=== PATIENT | female | born 1960 | race Caucasian/White ===

== ENCOUNTER 2019-07-17 14:55 | Emergency (ER) | payer BC ==
[~2019-07-17] VITALS: Ht 167.6 cm; Wt 98.4 kg
[~2019-07-17 14:55] MED LIST: Hair, Skin & N1 EACH PO; LEVSOD50; SERT25; TOPI15C; VITAMIN D-32000 UNIT
[2019-07-17 15:39] LABS: BASOPHILS ABSOLUTE AUTO 0.09 K/mm3 (0.00-0.23); BASOPHILS PERCENT AUTO 1 % (0-2); EOSINOPHILS ABSOLUTE AUTO 0.19 K/mm3 (0.00-0.68); EOSINOPHILS PERCENT AUTO 2 % (0-6); IMMATURE GRAN ABSOLUTE AUTO 0.03 K/mm3 (0.00-0.10); IMMATURE GRAN PERCENT AUTO 0 % (0-1); LYMPHOCYTES ABSOLUTE AUTO 1.34 K/mm3 (0.84-5.20); LYMPHOCYTES PERCENT AUTO 15 % (21-46); MONOCYTES ABSOLUTE AUTO 0.68 K/mm3 (0.16-1.47); MONOCYTES PERCENT AUTO 8 % (4-13); Mean Corpuscular HGB 32.1 pg (26.0-34.0); Mean Corpuscular HGB Conc 33.3 g/dL (31.5-36.5); Mean Corpuscular Volume 96 fL (80-100); NEUTROPHILS ABSOLUTE AUTO 6.74 K/mm3 (1.96-9.15); NEUTROPHILS PERCENT AUTO 74 % (41-73); Platelet Count 251 K/mm3 (150-400); RDW Coefficient Variation 12.3 % (11.7-14.2); RDW Standard Deviation 43.3 fL (35.1-46.3); Red Blood Cell Count 4.99 M/mm3 (3.80-5.20); White Blood Cell Count 9.07 K/mm3 (4.00-11.30)
[2019-07-17 16:00] LABS: Alanine Aminotransfer (ALT/SGP 31 U/L (12-78); Albumin, Blood 4.1 g/dL (3.4-5.0); Albumin/Globulin Ratio 1.1 (0.8-1.8); Alk Phos 81 U/L (50-136); Anion Gap 8 mmol/L (6-16); Aspartate Aminotrans (AST/SGOT 34 U/L (12-37); Bilirubin, Total 0.5 mg/dL (0.1-1.0); Blood Urea Nitrogen 8 mg/dL (8-24); Bun/Creatinine Ratio 9.5 (12.0-20.0); CO2, Blood 23 mmol/L (21-32); Calcium, Blood 8.8 mg/dL (8.5-10.1); Chloride, Blood 107 mmol/L (98-108); Creatinine, Blood 0.85 mg/dL (0.40-1.00); Globulin, Blood 3.6 g/dL (2.2-4.0); Glomerular Filtration Rate >60 (60-); Glucose, Blood 102 mg/dL (70-99); Potassium, Blood 4.1 mmol/L (3.5-5.5); Sodium, Blood 138 mmol/L (136-145); Total Protein, Blood 7.7 g/dL (6.4-8.2); Troponin I <0.015 ng/mL (0.000-0.040)
== END 2019-07-17 17:31 | disposition home or self-care (01) ==
LOC: ER 14:55
PROVIDERS: Physician Assistant
DX: I10 Essential (primary) hypertension (principal); R00.2 Palpitations; R56.9 Unspecified convulsions; Z87.891 Personal history of nicotine dependence; Z88.5 Allergy status to narcotic agent; Z88.6 Allergy status to analgesic agent; Z79.899 Other long term (current) drug therapy
CPT/HCPCS: 36415; 71046; 80053; 84484; 85025; 93005; 93010; 99285-25

== ENCOUNTER → 2019-10-18 | Outpatient (CLI) | payer BC ==
[2019-10-18 14:59] LABS: Candida species (DNA Probe) Negative (NEGATIVE); G. vaginalis (DNA Probe) Negative (NEGATIVE); T. vaginalis (DNA Probe) Negative (NEGATIVE)
== END ==
LOC: LAB SHORT 11:02 → LAB 11:02
PROVIDERS: Nurse Practitioner Family
DX: L29.8 Other pruritus (principal); N89.8 Other specified noninflammatory disorders of vagina
CPT/HCPCS: 87070; 87205; 87480; 87510; 87660

== ENCOUNTER → 2020-08-06 | Outpatient (CLI) | payer BC | LOC: LAB 11:16 | DX: R30.0 Dysuria (principal) | CPT/HCPCS: 87077; 87086; 87186 ==

== ENCOUNTER → 2020-08-16 | Outpatient (CLI) | payer BC | LOC: LAB 12:58 → LAB SHORT 12:58 | DX: L20.9 Atopic dermatitis, unspecified (principal) | CPT/HCPCS: 88305; 88312 ==

== ENCOUNTER → 2020-09-19 | Outpatient (CLI) | payer BC | END | disposition home or self-care (01) | LOC: LAB SHORT 14:07 → LAB 14:07 | DX: A49.9 Bacterial infection, unspecified (principal) | CPT/HCPCS: 87070; 87077; 87147; 87186; 87205 ==

== ENCOUNTER → 2021-03-13 | Outpatient (CLI) | payer BC | END | disposition home or self-care (01) | LOC: LAB 13:29 | DX: E03.9 Hypothyroidism, unspecified (principal); R11.2 Nausea with vomiting, unspecified; R19.7 Diarrhea, unspecified ==

== ENCOUNTER → 2022-01-22 | Outpatient (CLI) | payer BC, OTHER ==
[~2022-01-22] MED LIST changes: +AMLO5 PO; +LEVSOD100 PO; -LEVSOD50; +Loratadine10 MG PO; -SERT25; +SERT25 PO; -TOPI15C; +TOPI15C PO; +ZYRTEC10 M2 PO
[2022-01-22 18:48] LABS: Adenovirus F 40/41 Not Detected (NOT DETECT); Astrovirus Not Detected (NOT DETECT); Campylobacter Sp Detected (NOT DETECT); Cryptosporidium Not Detected (NOT DETECT); Cyclospora Cayetanensis Not Detected (NOT DETECT); E. Coli O157 Not Detected (NOT DETECT); Entamoeba Histolytica Not Detected (NOT DETECT); Enteroaggregative E. coli-EAEC Not Detected (NOT DETECT); Enteropathogenic E. coli-EPEC Not Detected (NOT DETECT); Enterotoxigenic E. coli-ETEC Not Detected (NOT DETECT); Giardia Lamblia Not Detected (NOT DETECT); Norovirus GI/GII Not Detected (NOT DETECT); Plesiomonas Shigelloides Not Detected (NOT DETECT); Rotavirus A Not Detected (NOT DETECT); Salmonella Sp Not Detected (NOT DETECT); Sapovirus Not Detected (NOT DETECT); Shiga Toxin-prod E. coli-STEC Not Detected (NOT DETECT); Shigella/Enteroin E. coli-EIEC Not Detected (NOT DETECT); Vibrio Cholerae Not Detected (NOT DETECT); Vibrio Sp Not Detected (NOT DETECT); Yersinia Enterocolitica Not Detected (NOT DETECT)
== END | disposition home or self-care (01) ==
LOC: LAB SHORT 13:54 → LAB 13:54
PROVIDERS: Nurse Practitioner Family
DX: R19.7 Diarrhea, unspecified (principal)
CPT/HCPCS: 87507

== ENCOUNTER 2022-04-06 16:09 | Inpatient (IN) | payer OTHER ==
[~2022-04-06] VITALS: Ht 170.2 cm; Wt 107.0 kg
[2022-04-06 17:04] LABS: BASOPHILS PERCENT AUTO 1 % (0-2); EOSINOPHILS ABSOLUTE AUTO 0.03 K/mm3 (0.00-0.68); EOSINOPHILS PERCENT AUTO 0 % (0-6); Hematocrit 39.8 % (33.0-51.0); Hemoglobin 13.9 g/dL (11.5-16.0); IMMATURE GRAN ABSOLUTE AUTO 0.27 K/mm3 (0.00-0.10); IMMATURE GRAN PERCENT AUTO 2 % (0-1); LYMPHOCYTES ABSOLUTE AUTO 1.01 K/mm3 (0.84-5.20); LYMPHOCYTES PERCENT AUTO 6 % (21-46); MONOCYTES ABSOLUTE AUTO 1.38 K/mm3 (0.16-1.47); MONOCYTES PERCENT AUTO 8 % (4-13); Mean Corpuscular HGB 34.2 pg (26.0-34.0); Mean Corpuscular HGB Conc 34.9 g/dL (31.5-36.5); Mean Corpuscular Volume 98 fL (80-100); Mean Platelet Volume 9.9 fL (9.1-12.4); NEUTROPHILS ABSOLUTE AUTO 14.16 K/mm3 (1.96-9.15); NEUTROPHILS PERCENT AUTO 84 % (41-73); Platelet Count 262 K/mm3 (150-400); RDW Coefficient Variation 15.1 % (11.7-14.2); RDW Standard Deviation 54.4 fL (35.1-46.3); Red Blood Cell Count 4.06 M/mm3 (3.80-5.20); White Blood Cell Count 16.95 K/mm3 (4.00-11.30)
[2022-04-06 17:19] LABS: Alanine Aminotransfer (ALT/SGP 104 U/L (12-78); Albumin/Globulin Ratio 0.5 (0.8-1.8); Alk Phos 166 U/L (50-136); Anion Gap 13 mmol/L (6-16); Aspartate Aminotrans (AST/SGOT 180 U/L (12-37); Bilirubin, Total 10.7 mg/dL (0.1-1.0); Blood Urea Nitrogen 12 mg/dL (8-24); CO2, Blood 17 mmol/L (21-32); Calcium, Blood 7.9 mg/dL (8.5-10.1); Chloride, Blood 94 mmol/L (98-108); Creatinine, Blood 1.09 mg/dL (0.40-1.00); Globulin, Blood 4.2 g/dL (2.2-4.0); Glomerular Filtration Rate 59 (60-); Glucose, Blood 106 mg/dL (70-99); Potassium, Blood 2.6 mmol/L (3.5-5.5); Sodium, Blood 124 mmol/L (136-145); Total Protein, Blood 6.2 g/dL (6.4-8.2)
[2022-04-06 19:43] LABS: Source, Urine Clean Catch
[2022-04-06 19:48] LABS: Appearance, Urine Hazy (Clear); Blood, Urine 5+ (Neg); Color, Urine Amber (P-Yellow); Glucose Qualitative, Urine Neg (Neg); Ketones, Urine Neg (Neg); Leukocyte Esterase, Urine 1+ (Neg); Nitrite, Urine Neg (Neg); Protein, Urine 1+ (Neg); Urobilinogen, Urine 1+ (Normal)
[2022-04-06 19:52] LABS: Bilirubin, Urine 2+ (Neg)
[2022-04-06 19:58] LABS: Mucus Light (0-Heavy)
[2022-04-06 20:00] LABS: Squamous Epithelial Cells Many /hpf (Few)
[2022-04-06 20:01] LABS: Bacteria Mod /hpf; Renal Epithelial Rare /hpf (0-Rare); Transitional Epithelial Cells Few /hpf (0-Rare)
[2022-04-06 22:05] LABS: Free Thyroxine 1.28 ng/dL (0.70-1.60)
[2022-04-06 22:10] LABS: Triiodothyronine, Free <0.50 pg/mL (2.18-3.98)
[2022-04-06 22:16] LABS: International Normalized Ratio 1.78
[2022-04-06 22:19] LABS: Bun/Creatinine Ratio 11.2 (12.0-20.0); Calcium, Blood 7.4 mg/dL (8.5-10.1); Creatinine, Blood 1.07 mg/dL (0.40-1.00); Potassium, Blood 3.7 mmol/L (3.5-5.5)
[2022-04-06 22:35] LABS: Magnesium, Blood 2.4 mg/dL (1.6-2.4)
[2022-04-07 06:02] LABS: BASOPHILS ABSOLUTE AUTO 0.07 K/mm3 (0.00-0.23); BASOPHILS PERCENT AUTO 1 % (0-2); EOSINOPHILS ABSOLUTE AUTO 0.08 K/mm3 (0.00-0.68); EOSINOPHILS PERCENT AUTO 1 % (0-6); Hematocrit 32.9 % (33.0-51.0); Hemoglobin 11.4 g/dL (11.5-16.0); IMMATURE GRAN PERCENT AUTO 1 % (0-1); LYMPHOCYTES ABSOLUTE AUTO 1.27 K/mm3 (0.84-5.20); LYMPHOCYTES PERCENT AUTO 9 % (21-46); MONOCYTES PERCENT AUTO 9 % (4-13); Mean Corpuscular HGB Conc 34.7 g/dL (31.5-36.5); Mean Corpuscular Volume 98 fL (80-100); Mean Platelet Volume 10.1 fL (9.1-12.4); NEUTROPHILS ABSOLUTE AUTO 11.72 K/mm3 (1.96-9.15); NEUTROPHILS PERCENT AUTO 80 % (41-73); Platelet Count 185 K/mm3 (150-400); RDW Coefficient Variation 15.1 % (11.7-14.2); RDW Standard Deviation 54.4 fL (35.1-46.3); Red Blood Cell Count 3.35 M/mm3 (3.80-5.20); White Blood Cell Count 14.64 K/mm3 (4.00-11.30)
[2022-04-07 06:13] LABS: Albumin, Blood 1.6 g/dL (3.4-5.0); Albumin/Globulin Ratio 0.5 (0.8-1.8); Bun/Creatinine Ratio 11.1 (12.0-20.0); Calcium, Blood 7.1 mg/dL (8.5-10.1); Creatinine, Blood 1.26 mg/dL (0.40-1.00); Globulin, Blood 3.4 g/dL (2.2-4.0)
--- NOTE | 2022-04-07 06:17 | NUR ---
SHIFT SUMMARY PT CAME TO THE FLOOR AROUND 2320. NO COMPLAINS OF PAIN OR N/V. THE PT SHOWED NO SIGN OF RASH FROM ADMIN OF ZOSYN. ABX ADMINISTERED PT RESPONDING WELL AND REPORTING FELLING A BIT BETER THIS MORNING. IS GOING TO BRING IN HER EYE DROPS FOR HER CORNEA SURGERY. ALL MEDS RECONCILED. PT IS STILL HAVING DIARRHEA AND IS INCONT SHE CANNOT FEEL WHEN SHE HAS GONE. STOOL SAMPLE STILL NEEDS TO BE COLLECTED. PT HAS NOT BEEN OUT OF BED BUT WOULD LIKE TO TRY AND USE THE BEDSIDE COMMODE. THIS RN TOLD HER TO CALL THE FIRST TIME SHE GETS. UP. BED IN LOWEST POSITION AND CALL LIGHT IN REACH.
[2022-04-07] MEDS ORDERED: [UNRECOGNIZED DRUG - CODE] (09:13)
[2022-04-07 10:44] LABS: Adenovirus F 40/41 Not Detected (NOT DETECT); Astrovirus Not Detected (NOT DETECT); Campylobacter Sp Not Detected (NOT DETECT); Cryptosporidium Not Detected (NOT DETECT); Cyclospora Cayetanensis Not Detected (NOT DETECT); E. Coli O157 Not Detected (NOT DETECT); Entamoeba Histolytica Not Detected (NOT DETECT); Enteroaggregative E. coli-EAEC Not Detected (NOT DETECT); Enteropathogenic E. coli-EPEC Detected (NOT DETECT); Enterotoxigenic E. coli-ETEC Not Detected (NOT DETECT); Giardia Lamblia Not Detected (NOT DETECT); Norovirus GI/GII Not Detected (NOT DETECT); Plesiomonas Shigelloides Not Detected (NOT DETECT); Rotavirus A Not Detected (NOT DETECT); Salmonella Sp Not Detected (NOT DETECT); Shiga Toxin-prod E. coli-STEC Not Detected (NOT DETECT); Shigella/Enteroin E. coli-EIEC Not Detected (NOT DETECT); Vibrio Cholerae Not Detected (NOT DETECT); Vibrio Sp Not Detected (NOT DETECT); Yersinia Enterocolitica Not Detected (NOT DETECT)
[2022-04-07 10:45] LABS: Sapovirus Not Detected (NOT DETECT)
--- NOTE | 2022-04-07 17:50 | NUR ---
SHIFT SUMMARY NO ACUTE CHANGES DURING SHIFT. PT ALERT AND ORIENTED, FOLLOWS COMMANDS. X1 ASSIST WITH WALKER. HIDA SCAN COMPLETED TODAY. CONTINUED DIARRHEA, STOOL SAMPLE SENT TO LAB. CONTINUE IV ABX. CALL LIGHT WITHIN REACH.
[2022-04-07 23:09] LABS: Source, Urine Foley catheter
[2022-04-07 23:20] LABS: Appearance, Urine Hazy (Clear); Blood, Urine 2+ (Neg); Color, Urine Amber (P-Yellow); Glucose Qualitative, Urine Neg (Neg); Ketones, Urine 1+ (Neg); Leukocyte Esterase, Urine 1+ (Neg); Nitrite, Urine Neg (Neg); Protein, Urine 1+ (Neg); Specific Gravity, Urine 1.015 (1.003-1.022); Urobilinogen, Urine 1+ (Normal)
[2022-04-07 23:37] LABS: Bilirubin, Urine 2+ (Neg)
[2022-04-07 23:46] LABS: Bacteria Many /hpf; Red Blood Cells, Urine 0-2 /hpf (0-2); Renal Epithelial Rare /hpf (0-Rare); Squamous Epithelial Cells Few /hpf (Few)
--- NOTE | 2022-04-07 23:56 | NUR ---
PT STATUS PT IS REFUSING TO TAKE THE BANANATROL POWDER PACKET THE NUTRIENT VALUE OF THIS MEDICATION FALLS OUTSIDE OF HER STRICT DIETARY REQUIREMENTS. SHE IS, HOWEVER, STILL EXPERIENCING DIARRHEA.
--- NOTE | 2022-04-08 05:14 | NUR ---
SHIFT SUMMARY - NO ACUTE EVENTS T/O NIGHT. EARLY IN THE SHIFT THE DAY GLOVE TURNER AND FORMER INFORMED ME THAT THE PT HAD NOT VOIDED ALL DAY. UPON ASSESSMENT THE PT STATED THAT THE LAST TIME SHE VOIDED WAS ALMOST 2 DAYS AGO AND THAT SHE DIDN'T FEEL LIKE SHE HAD URINE IN HER BLADDER. A BLADDER SCAN REVEALED 771 ML IN HER BLADDER. I CALLED DR. ANGULO AND INFORMED HIM OF THE SITUATION AND A FLETCHER WAS ORDERED AND PUT IN. PT WAS INCONTINENT OF LOOSE WATERY STOOLS TWICE DURING THE SHIFT. 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 PT REMAINS ON A CLEAR LIQUID DIET SPECIFYING NO SUGAR, CARBS OR EGGS. PT WAS COOPERATIVE AND PLEASANT T/O SHIFT.
[2022-04-08 05:22] LABS: BASOPHILS ABSOLUTE AUTO 0.05 K/mm3 (0.00-0.23); BASOPHILS PERCENT AUTO 0 % (0-2); EOSINOPHILS ABSOLUTE AUTO 0.09 K/mm3 (0.00-0.68); EOSINOPHILS PERCENT AUTO 1 % (0-6); Hematocrit 31.6 % (33.0-51.0); Hemoglobin 11.1 g/dL (11.5-16.0); IMMATURE GRAN ABSOLUTE AUTO 0.18 K/mm3 (0.00-0.10); IMMATURE GRAN PERCENT AUTO 2 % (0-1); LYMPHOCYTES ABSOLUTE AUTO 0.91 K/mm3 (0.84-5.20); LYMPHOCYTES PERCENT AUTO 8 % (21-46); MONOCYTES ABSOLUTE AUTO 1.06 K/mm3 (0.16-1.47); MONOCYTES PERCENT AUTO 9 % (4-13); Mean Corpuscular HGB Conc 35.1 g/dL (31.5-36.5); Mean Corpuscular Volume 100 fL (80-100); Mean Platelet Volume 9.8 fL (9.1-12.4); NEUTROPHILS ABSOLUTE AUTO 9.25 K/mm3 (1.96-9.15); NEUTROPHILS PERCENT AUTO 80 % (41-73); Platelet Count 147 K/mm3 (150-400); RDW Coefficient Variation 15.4 % (11.7-14.2); RDW Standard Deviation 56.4 fL (35.1-46.3); Red Blood Cell Count 3.17 M/mm3 (3.80-5.20); White Blood Cell Count 11.54 K/mm3 (4.00-11.30)
[2022-04-08 05:51] LABS: Albumin, Blood 1.5 g/dL (3.4-5.0); Albumin/Globulin Ratio 0.4 (0.8-1.8); Bilirubin, Total 8.9 mg/dL (0.1-1.0); Bun/Creatinine Ratio 12.1 (12.0-20.0); Calcium, Blood 7.1 mg/dL (8.5-10.1); Creatinine, Blood 1.49 mg/dL (0.40-1.00); Globulin, Blood 3.4 g/dL (2.2-4.0); Magnesium, Blood 2.4 mg/dL (1.6-2.4); Potassium, Blood 2.8 mmol/L (3.5-5.5); Total Protein, Blood 4.9 g/dL (6.4-8.2)
[2022-04-08 14:01] LABS: International Normalized Ratio 1.94; Prothrombin Time Results 19.5 Sec (9.7-11.5)
[2022-04-08 17:33] LABS: Influenza A, PCR NEGATIVE (NEGATIVE); Influenza B, PCR NEGATIVE (NEGATIVE); Resp Syncytial Virus, PCR NEGATIVE (NEGATIVE); SARS-Cov-2 (COVID-19) PCR, MMC NEGATIVE (NEGATIVE)
--- NOTE | 2022-04-08 19:04 | NUR ---
SHIFT SUMMARY NO ACUTE CHANGES DURING SHIFT. PT ALERT AND ORIENTED. FOLLOWS COMMANDS. FLETCHER DRAINING TO GRAVITY. CONTINUED DIARHHEA. MRI COMPLETED, PENDING SURGERY DECISION. CALL LIGHT WITHIN REACH.
--- NOTE | 2022-04-09 04:58 | NUR ---
SHIFT SUMMARY PT HAS BEEN SLEEPING MOST OF THE SHIFT. NO COMPLAINTS OF PAIN, SOME MILD CRAMPING. THERE IS SOME CONCERN OVER PATIENTS DIEST SHE HAS A VERY RESTRICTED DIET, AND STATES SHE HAS NOT BEEN ABLE TO EAT MUCH OF ANYTHING THAT COMES ON HER TRAYS. WILL PASS ONTO DAY SHIFT.1 SOFT BM. AWAITING DECISION ABOUT BILIARY DRAIN. PT IS EAGER TO DC AND IS ACCEPTING OF THE CURRENT PLAN FOR SNF. BED IN LOWEST POSITION AND CALL LIGHT IN REACH. BED IN LOWEST POSITION AND CALL LIGHT IN REACH
[2022-04-09 05:11] LABS: BASOPHILS ABSOLUTE AUTO 0.05 K/mm3 (0.00-0.23); BASOPHILS PERCENT AUTO 1 % (0-2); EOSINOPHILS ABSOLUTE AUTO 0.08 K/mm3 (0.00-0.68); EOSINOPHILS PERCENT AUTO 1 % (0-6); Hematocrit 31.1 % (33.0-51.0); Hemoglobin 10.7 g/dL (11.5-16.0); IMMATURE GRAN ABSOLUTE AUTO 0.17 K/mm3 (0.00-0.10); IMMATURE GRAN PERCENT AUTO 2 % (0-1); LYMPHOCYTES ABSOLUTE AUTO 0.87 K/mm3 (0.84-5.20); LYMPHOCYTES PERCENT AUTO 9 % (21-46); MONOCYTES ABSOLUTE AUTO 0.95 K/mm3 (0.16-1.47); MONOCYTES PERCENT AUTO 10 % (4-13); Mean Corpuscular HGB 34.6 pg (26.0-34.0); Mean Corpuscular HGB Conc 34.4 g/dL (31.5-36.5); Mean Corpuscular Volume 101 fL (80-100); Mean Platelet Volume 9.8 fL (9.1-12.4); NEUTROPHILS ABSOLUTE AUTO 7.77 K/mm3 (1.96-9.15); NEUTROPHILS PERCENT AUTO 79 % (41-73); Platelet Count 138 K/mm3 (150-400); RDW Coefficient Variation 15.6 % (11.7-14.2); RDW Standard Deviation 57.6 fL (35.1-46.3); Red Blood Cell Count 3.09 M/mm3 (3.80-5.20); White Blood Cell Count 9.89 K/mm3 (4.00-11.30)
[2022-04-09 05:41] LABS: Albumin, Blood 1.5 g/dL (3.4-5.0); Albumin/Globulin Ratio 0.5 (0.8-1.8); Bilirubin, Total 8.5 mg/dL (0.1-1.0); Bun/Creatinine Ratio 14.6 (12.0-20.0); Calcium, Blood 6.9 mg/dL (8.5-10.1); Creatinine, Blood 1.23 mg/dL (0.40-1.00); Globulin, Blood 3.2 g/dL (2.2-4.0); Magnesium, Blood 2.3 mg/dL (1.6-2.4); Potassium, Blood 2.9 mmol/L (3.5-5.5); Total Protein, Blood 4.7 g/dL (6.4-8.2)
--- NOTE | 2022-04-09 17:40 | NUR ---
PATIENT A/OX4, UP WITH PT AND OT TODAY AND ABLE TO WALK AROUND IN ROOM WITH FWW AND 1 ASSIST. REPORTS 5/10 PAIN TO RUQ ABDOMEN, REFUSES NEED FOR PAIN MEDICATION. WENT DOWN FOR PLACEMENT OF CHOLECYSTOSTOMY, OUTPUT IS DARK BROWN IN COLOR. B/P DECREASED AFTER PROCEDURE, BUT IS STARTING TO INCREASE. CONTINUES ON NS @ 125ML/HR. TOLERATING CLEAR DIET, REFUSES TO EAT ANYTHING WITH ANY SUGAR. SKIN INTACT. IV TO R AC WNL. PATIENT COOPERATIVE WITH CARE, ABLE TO MAKE NEEDS KNOWN.
[2022-04-09 18:47] LABS: Albumin, Blood 1.7 g/dL (3.4-5.0); Anion Gap 10 mmol/L (6-16); Blood Urea Nitrogen 19 mg/dL (8-24); Bun/Creatinine Ratio 13.9 (12.0-20.0); CO2, Blood 16 mmol/L (21-32); Calcium, Blood 7.5 mg/dL (8.5-10.1); Chloride, Blood 105 mmol/L (98-108); Creatinine, Blood 1.37 mg/dL (0.40-1.00); Glomerular Filtration Rate 44 (60-); Glucose, Blood 87 mg/dL (70-99); Potassium, Blood 3.2 mmol/L (3.5-5.5); Sodium, Blood 131 mmol/L (136-145)
--- NOTE | 2022-04-10 04:29 | NUR ---
SHIFT SUMMARY PT HAS BEEN COMFORTABLE AND SLEEPING THIS SHIFT. HEPATIC DRAIN STILL PUTTING OUT THICK BROWN LIQUID. URINE IN FLETCHER BAG IS A DARK JONN. PT IS HOPEFUL TO FIND OUT MORE ABOUT DISCHARGING TO A SNF. BED IN LOWEST POSITION AND CALL LIGHT IN REACH.
[2022-04-10 06:16] LABS: BASOPHILS ABSOLUTE AUTO 0.07 K/mm3 (0.00-0.23); BASOPHILS PERCENT AUTO 1 % (0-2); EOSINOPHILS ABSOLUTE AUTO 0.15 K/mm3 (0.00-0.68); EOSINOPHILS PERCENT AUTO 1 % (0-6); Hematocrit 36.8 % (33.0-51.0); Hemoglobin 12.1 g/dL (11.5-16.0); IMMATURE GRAN ABSOLUTE AUTO 0.18 K/mm3 (0.00-0.10); IMMATURE GRAN PERCENT AUTO 2 % (0-1); LYMPHOCYTES ABSOLUTE AUTO 0.96 K/mm3 (0.84-5.20); LYMPHOCYTES PERCENT AUTO 9 % (21-46); MONOCYTES ABSOLUTE AUTO 1.12 K/mm3 (0.16-1.47); MONOCYTES PERCENT AUTO 11 % (4-13); Mean Corpuscular HGB 34.1 pg (26.0-34.0); Mean Corpuscular HGB Conc 32.9 g/dL (31.5-36.5); Mean Corpuscular Volume 104 fL (80-100); Mean Platelet Volume 9.9 fL (9.1-12.4); NEUTROPHILS ABSOLUTE AUTO 8.23 K/mm3 (1.96-9.15); NEUTROPHILS PERCENT AUTO 77 % (41-73); Platelet Count 137 K/mm3 (150-400); RDW Coefficient Variation 15.8 % (11.7-14.2); RDW Standard Deviation 60.2 fL (35.1-46.3); Red Blood Cell Count 3.55 M/mm3 (3.80-5.20); White Blood Cell Count 10.71 K/mm3 (4.00-11.30)
[2022-04-10 06:31] LABS: Albumin, Blood 1.7 g/dL (3.4-5.0); Albumin/Globulin Ratio 0.5 (0.8-1.8); Bilirubin, Total 8.7 mg/dL (0.1-1.0); Bun/Creatinine Ratio 13.2 (12.0-20.0); Calcium, Blood 7.3 mg/dL (8.5-10.1); Creatinine, Blood 1.52 mg/dL (0.40-1.00); Globulin, Blood 3.6 g/dL (2.2-4.0); Magnesium, Blood 2.2 mg/dL (1.6-2.4); Potassium, Blood 3.2 mmol/L (3.5-5.5); Total Protein, Blood 5.3 g/dL (6.4-8.2)
[2022-04-10 06:43] LABS: International Normalized Ratio 1.7; Prothrombin Time Results 17.2 Sec (9.7-11.5)
--- NOTE | 2022-04-10 17:33 | NUR ---
PATIENT HAD A BETTER DAY TODAY. PAIN BETTER MANAGED WITH OXYCODONE. WALKED IN ROOM WITH PT/OT AND WAS UP TO A CHAIR FOR A FEW HOURS. COTINUES TO HAVE FREQUENT DIARRHEA. DRESSING CHANGED TO CHOLECYSTOSTOMY DRAIN. VSS, ON RA. 20G IV TO R AC WNL AND SL. GENERALIZED 2+ EDEMA. ADVANCED TO GLUTEN FREE DIET AND IS TOLERATING WELL. CALM AND COOPERATIVE WITH CARE, ABLE TO MAKE NEEDS KNOWN.
[2022-04-11 04:44] LABS: BASOPHILS ABSOLUTE AUTO 0.06 K/mm3 (0.00-0.23); BASOPHILS PERCENT AUTO 1 % (0-2); EOSINOPHILS ABSOLUTE AUTO 0.23 K/mm3 (0.00-0.68); EOSINOPHILS PERCENT AUTO 2 % (0-6); Hematocrit 34.1 % (33.0-51.0); Hemoglobin 11.7 g/dL (11.5-16.0); IMMATURE GRAN ABSOLUTE AUTO 0.19 K/mm3 (0.00-0.10); IMMATURE GRAN PERCENT AUTO 2 % (0-1); LYMPHOCYTES ABSOLUTE AUTO 1.06 K/mm3 (0.84-5.20); LYMPHOCYTES PERCENT AUTO 10 % (21-46); MONOCYTES PERCENT AUTO 12 % (4-13); Mean Corpuscular HGB 34.8 pg (26.0-34.0); Mean Corpuscular HGB Conc 34.3 g/dL (31.5-36.5); Mean Corpuscular Volume 102 fL (80-100); Mean Platelet Volume 10.1 fL (9.1-12.4); NEUTROPHILS ABSOLUTE AUTO 8.04 K/mm3 (1.96-9.15); NEUTROPHILS PERCENT AUTO 74 % (41-73); Platelet Count 119 K/mm3 (150-400); RDW Coefficient Variation 15.5 % (11.7-14.2); RDW Standard Deviation 58.4 fL (35.1-46.3); Red Blood Cell Count 3.36 M/mm3 (3.80-5.20); White Blood Cell Count 10.88 K/mm3 (4.00-11.30)
[2022-04-11 05:03] LABS: International Normalized Ratio 1.71; Prothrombin Time Results 17.3 Sec (9.7-11.5)
[2022-04-11 05:07] LABS: Albumin, Blood 1.6 g/dL (3.4-5.0); Albumin/Globulin Ratio 0.5 (0.8-1.8); Bilirubin, Total 7.7 mg/dL (0.1-1.0); Bun/Creatinine Ratio 12.2 (12.0-20.0); Calcium, Blood 7.2 mg/dL (8.5-10.1); Creatinine, Blood 1.72 mg/dL (0.40-1.00); Globulin, Blood 3.4 g/dL (2.2-4.0); Magnesium, Blood 2.2 mg/dL (1.6-2.4); Potassium, Blood 3.9 mmol/L (3.5-5.5)
--- NOTE | 2022-04-11 13:56 | NUR ---
PT REFUSED EYE DROPS PER ONE DOSE, REPORTS CHANGE OF THREE TIMES DAILY FROM PREFERS AT DINNER AND BEDTIMES FOR COMFORT. HELD EYE DROP PER PT REQUEST.
--- NOTE | 2022-04-11 15:58 | NUR ---
SHIFT SUMMARY- PT UP TO CHAIR FOR MEALS. INCONTENT OF BM. EDEMA BLE PITTING X2. NO ACUTE CHANGES. APPETITE OK, LUNCH REPORT REDUCED APPETITE. NO N/V. BM THICKENING, LOOSE WITH SOLID. A&O X3. FAMILY AT BEDSIDE. CALL LIGHT IN REACH, SIDE RAILS UP, AND BED ALARM IN PLACE FOR SAFETY.
--- NOTE | 2022-04-11 16:46 | NUR ---
Assumed care of patient at 1615, patient awake, introduced self. Handoff report given by elizabeth MADRIGAL. Right Quandrant, cholcytotomy tube, drainage brown colored. Allan catheter in place, draining to gravity, urine tea colored. Vitals stable, afebrile. Will continue to monitor.
--- NOTE | 2022-04-11 18:15 | NUR ---
Patient and asking questions about diagnosis & interventions. Verbalized understanding that alcohol is a big risk factor to current illness, patient states MD provided education on prognosis and short life expectancy with this condition. Patient says she doesn't want to hear that or talk about the negative things. Patient wants support to continue sobriety. Placed palliative care consult to help provide support to patient.
[2022-04-12 05:28] LABS: BASOPHILS ABSOLUTE AUTO 0.07 K/mm3 (0.00-0.23); BASOPHILS PERCENT AUTO 1 % (0-2); EOSINOPHILS ABSOLUTE AUTO 0.13 K/mm3 (0.00-0.68); EOSINOPHILS PERCENT AUTO 1 % (0-6); Hematocrit 36.1 % (33.0-51.0); Hemoglobin 12.2 g/dL (11.5-16.0); IMMATURE GRAN ABSOLUTE AUTO 0.18 K/mm3 (0.00-0.10); IMMATURE GRAN PERCENT AUTO 2 % (0-1); LYMPHOCYTES ABSOLUTE AUTO 1.12 K/mm3 (0.84-5.20); LYMPHOCYTES PERCENT AUTO 11 % (21-46); MONOCYTES ABSOLUTE AUTO 1.32 K/mm3 (0.16-1.47); MONOCYTES PERCENT AUTO 13 % (4-13); Mean Corpuscular HGB 34.6 pg (26.0-34.0); Mean Corpuscular HGB Conc 33.8 g/dL (31.5-36.5); Mean Corpuscular Volume 102 fL (80-100); Mean Platelet Volume 10.3 fL (9.1-12.4); NEUTROPHILS ABSOLUTE AUTO 7.76 K/mm3 (1.96-9.15); NEUTROPHILS PERCENT AUTO 73 % (41-73); Platelet Count 106 K/mm3 (150-400); RDW Coefficient Variation 15.5 % (11.7-14.2); RDW Standard Deviation 58.4 fL (35.1-46.3); Red Blood Cell Count 3.53 M/mm3 (3.80-5.20); White Blood Cell Count 10.58 K/mm3 (4.00-11.30)
--- NOTE | 2022-04-12 05:56 | NUR ---
SHIFT SUMMARY: PATIENT CONTINUES TO HAVE OCCASSIONAL, RIGHT SIDE ABD. PAIN. MEDICATED PER MAR WITH GOOD EFFECT. INC. OF STOOL. RADHA/RECTAL AREA IS EXCORIATED. FLETCHER IS PATENT FOR AND JONN URINE. DRAIN HAD BRIGHT YELLOW TO JONN OUTPUT, LARGE AMOUNT.
[2022-04-12 06:11] LABS: Albumin, Blood 1.6 g/dL (3.4-5.0); Albumin/Globulin Ratio 0.4 (0.8-1.8); Bilirubin, Total 8.4 mg/dL (0.1-1.0); Bun/Creatinine Ratio 12.1 (12.0-20.0); Calcium, Blood 7.5 mg/dL (8.5-10.1); Creatinine, Blood 1.9 mg/dL (0.40-1.00); Globulin, Blood 3.6 g/dL (2.2-4.0); Magnesium, Blood 2.3 mg/dL (1.6-2.4); Potassium, Blood 3.5 mmol/L (3.5-5.5); Total Protein, Blood 5.2 g/dL (6.4-8.2)
--- NOTE | 2022-04-12 12:32 | NUR ---
I&O's also documented under elimination with adl's. For the dates 04/11/22 and 04/12/22
--- NOTE | 2022-04-12 14:42 | NUR ---
SHIFT SUMMARY PT AWAKE DURING SHIFT REPORT; PT'S IN TO VISIT. PT DECLINED TO GET UP TO CHAIR FOR BREAKFAST, BUT DID AGREE TO GET UP FOR LUNCH AND DINNER. BILARY DRAIN TO RUQ, DRAINING JONN COLORED FLUID; DRSG C/D/I. FLETCHER TO GRAVITY; PATENT AND DRAINING DRK JONN URINE. PT UP WITH P/T TODAY AND AMBULATED IN RM AND TO CHAIR. PT INCONTINENT OF BOWELS EARLIER TODAY. SR ON TELE. 2+ EDEMA TO BLE'S; DIURETICS CHANGED TODAY WITH STRICT I&O'S. MEDICATED FOR C/O PAIN X1 TO PRESENT. RESTING QUIETLY AT THIS TIME. CALL LT IN REACH.
--- NOTE | 2022-04-13 04:36 | NUR ---
SHIFT SUMMARY ADMITTED FOR UTI/SEPSIS. FULL CODE. STRICT I&O'S ORDERED. FLETCHER IN PLACE. BILE DRAIN IN PLACE FOR GALLBLADDER. SHE IS INCONTINENT OF BM. A&O X4. 1 ASSIST W/FWW - BSC OR CHAIR. TELEMETRY: NSR @ 74 BPM
[2022-04-13 05:17] LABS: BASOPHILS ABSOLUTE AUTO 0.07 K/mm3 (0.00-0.23); BASOPHILS PERCENT AUTO 1 % (0-2); EOSINOPHILS ABSOLUTE AUTO 0.14 K/mm3 (0.00-0.68); EOSINOPHILS PERCENT AUTO 1 % (0-6); Hematocrit 36.5 % (33.0-51.0); Hemoglobin 12.2 g/dL (11.5-16.0); IMMATURE GRAN ABSOLUTE AUTO 0.19 K/mm3 (0.00-0.10); IMMATURE GRAN PERCENT AUTO 2 % (0-1); LYMPHOCYTES PERCENT AUTO 10 % (21-46); MONOCYTES ABSOLUTE AUTO 1.45 K/mm3 (0.16-1.47); MONOCYTES PERCENT AUTO 14 % (4-13); Mean Corpuscular HGB 34.6 pg (26.0-34.0); Mean Corpuscular HGB Conc 33.4 g/dL (31.5-36.5); Mean Corpuscular Volume 103 fL (80-100); Mean Platelet Volume 10.4 fL (9.1-12.4); NEUTROPHILS ABSOLUTE AUTO 7.78 K/mm3 (1.96-9.15); NEUTROPHILS PERCENT AUTO 72 % (41-73); Platelet Count 91 K/mm3 (150-400); RDW Coefficient Variation 15.3 % (11.7-14.2); RDW Standard Deviation 58.9 fL (35.1-46.3); Red Blood Cell Count 3.53 M/mm3 (3.80-5.20); White Blood Cell Count 10.73 K/mm3 (4.00-11.30)
[2022-04-13 05:41] LABS: Albumin, Blood 1.7 g/dL (3.4-5.0); Albumin/Globulin Ratio 0.5 (0.8-1.8); Bilirubin, Total 8.1 mg/dL (0.1-1.0); Bun/Creatinine Ratio 13.3 (12.0-20.0); Calcium, Blood 7.7 mg/dL (8.5-10.1); Creatinine, Blood 1.96 mg/dL (0.40-1.00); Globulin, Blood 3.5 g/dL (2.2-4.0); Potassium, Blood 3.7 mmol/L (3.5-5.5); Total Protein, Blood 5.2 g/dL (6.4-8.2)
--- NOTE | 2022-04-13 13:23 | NUR ---
Pt resting in bed with her eyes opened. Pt has somewhat of flat affect. Engaged in active listening as Pt reports having 6 children one of whom lives with her and her . She reports plan for her son to move up to [facility] to live her their daughter. Assessed Pt's understanding of her health. Pt has some understanding but needs occasional education re-enforcement. Discussed considering hospice and educated on hospice philosophy. Pt denies need for this RN to call her and reports plan to discuss with him this evening when he is visiting. Continued supportive visit and offered emotional support as Pt is intermitently tearful. Spoke with Primary RN Sasha and discussed case. Pt's appetite is poor, is incontinent, and requires standbye assist with ambulation. Pt has refused out of bed today. Spoke with Dr Cruz and discussed case. Dr Cruz reports consideration of hospice may be beneficial. PPS 40% ADLs 4/6 Palliative Care will remain available.
--- NOTE | 2022-04-13 15:14 | NUR ---
SHIFT SUMMARY PT RESTING QUIETLY AT START OF SHIFT. AT EARLY AGAIN THIS AM. PT APPEARED TO BE AND REPORTED THAT SHE WAS TIRED TODAY. PT NOT WANTING TO GET UP TO CHAIR FOR MEALS OR WORK WITH P/T. BLE'S MORE SWOLLEN TODAY THAN YESTERDAY, EVEN WITH DIURETICS ADDED. CLEMENTE WRAPS APPLIED TO BLE'S, PER DR DOLAN, FOR EDEMA. FLETCHER TO GRAVITY PATENT; URINE REMAINS DRK JONN. GB DRAIN REMAIN PATENT WITH JONN COLORED FLUID DRAINING. DR DOLAN IN TO SEE PT THIS AM AND DISCUSSED PLAN OF CARE. CODE STATUS CHANGED. PALLIATIVE CARE ALSO HERE TO TALK WITH PT AFTER DR DOLAN LEFT. PT TO DISCUSS HOSPICE WITH WHEN HE COMES BACK IN. PT INCONTINENT OF BOWELS; BLADDER WELL W/O FLETCHER. PT ONLY EATING SM BITES AT EACH MEAL; INTAKE DECREASING EACH DAY. PT WITH HX OF ETOH ABUSE, CKD, ESLD, AND CIRRHOSIS. NO C/O. DENIED FURTHER NEEDS AT THIS TIME. CALL LT IN REACH.
[2022-04-13 15:59] LABS: International Normalized Ratio 1.78
[2022-04-14 06:16] LABS: BASOPHILS ABSOLUTE AUTO 0.06 K/mm3 (0.00-0.23); BASOPHILS PERCENT AUTO 1 % (0-2); EOSINOPHILS ABSOLUTE AUTO 0.07 K/mm3 (0.00-0.68); EOSINOPHILS PERCENT AUTO 1 % (0-6); Hematocrit 30.5 % (33.0-51.0); Hemoglobin 10.5 g/dL (11.5-16.0); IMMATURE GRAN ABSOLUTE AUTO 0.09 K/mm3 (0.00-0.10); IMMATURE GRAN PERCENT AUTO 1 % (0-1); LYMPHOCYTES ABSOLUTE AUTO 0.63 K/mm3 (0.84-5.20); LYMPHOCYTES PERCENT AUTO 9 % (21-46); MONOCYTES ABSOLUTE AUTO 0.93 K/mm3 (0.16-1.47); MONOCYTES PERCENT AUTO 13 % (4-13); Mean Corpuscular HGB 34.8 pg (26.0-34.0); Mean Corpuscular HGB Conc 34.4 g/dL (31.5-36.5); Mean Corpuscular Volume 101 fL (80-100); Mean Platelet Volume 10.2 fL (9.1-12.4); NEUTROPHILS PERCENT AUTO 75 % (41-73); Platelet Count 82 K/mm3 (150-400); RDW Coefficient Variation 15.2 % (11.7-14.2); RDW Standard Deviation 56.8 fL (35.1-46.3); Red Blood Cell Count 3.02 M/mm3 (3.80-5.20); White Blood Cell Count 6.98 K/mm3 (4.00-11.30)
[2022-04-14 06:28] LABS: Albumin, Blood 2.3 g/dL (3.4-5.0); Albumin/Globulin Ratio 0.8 (0.8-1.8); Bilirubin, Total 7.5 mg/dL (0.1-1.0); Bun/Creatinine Ratio 13.4 (12.0-20.0); Calcium, Blood 7.6 mg/dL (8.5-10.1); Creatinine, Blood 2.01 mg/dL (0.40-1.00); Globulin, Blood 2.9 g/dL (2.2-4.0); Potassium, Blood 3.3 mmol/L (3.5-5.5); Total Protein, Blood 5.2 g/dL (6.4-8.2)
--- NOTE | 2022-04-14 11:42 | NUR ---
Pt sitting in chair upon arrival. Pt remains with flat affect. Pt reports speaking with her yesterday evening regarding considering hospice with requesting to speak with Palliative Care. Pt reports no concerns at this time. Attempted to call Pt's spouse Andrea. Left message on voicemail with request for a return phone call. Palliative Care will remain available.
--- NOTE | 2022-04-14 13:00 | NUR ---
Received call back from Pt's spouse Andrea. Provided update and engaged in therapeutic discussion regarding goals of care and options. Discussed home health and discussed hospice. Educated on hospice philosophy with V/U made by Andrea. Offered active listening and answered questions. Andrea reports being in agreement with hospice. No other concerns reported at this time. Spoke with Pt and relayed spouse's thoughts. Pt also reports being in agreement with hospice services. PPS 40% Spoke with RN Rosemarie Rothman and discussed case. Relayed wishes for hospice. Spoke with Dr Gao and discussed case. Dr Gao also in agreement for hospice. Palliative Care will remain available.
--- NOTE | 2022-04-14 17:36 | NUR ---
SHFIT SUMMARY PT IS A&0 X4 AND PLEASANT. PT WORKED WITH PHYSICAL THERAPY TODAY AND WAS ABLE TO WALK TO ROOM DOOR WITH WALKER. PT HAS BEEN UP IN CHAIR SINCE LUNCH AND STATED IT IS MORE COMFORTABLE THAN SITTING IN THE BED. PT ONLY REQUESTED PAIN MEDS ONCE, BEFORE SHE WORKED WITH PHYSICAL THERAPY. PT HAS CHOLECYSTOSOTOMY TUBE IN RIGHT LOWER ABDOMEN THAT IS DRAINING DARK GREENISH LIQUID. PT ALSO HAS WEEPING EDEMA ON BILATERAL UPPER THIGHS. FLETCHER CAHTHETER IS IN PLACE AND DRAIINING ORANGE COLORED URINE. PT IS TO D/C HOME TOMORROW ON HOSPICE BUT PT AND EXPRESSED A DESIRE TO TALK TO THE MAIL DELIVERY SUPERVISOR ABOUT SOME CONCERNS THEY HAVE ABOUT GOING HOME TOMORROW. WILL CONTINUE TO MONITOR.
--- NOTE | 2022-04-15 17:33 | NUR ---
SHIFT SUMMARY PT IS A&O X4 AND PLEASANT. PT IS ADMITTED FOR CIRRHOSIS WITH [facility]. PT WAS TO BE DISCHARCHED HOME ON HOSPICE TODAY BUT DUE TO MOVING AND GOING OUT OF TOWN, PT WILL BE DISCHARCHED HOME ON JUDY. PT HAS CHOLESYSTOMSTOMY TUBE DRAINING GREENISH FLUIDS. PT HAS A SMALL AREA OF SKIN BREAKDOWN NEAR ANUS THAT BLEEDS SLIGHTLY WHEN RECEIVING RADHA CARE. PT IS INCONTIENT OF STOOL. PT'S EBER HOSE TEND TO ROLL AND BUNCH ON PT'S UPPER CALF. FREQUENT CHECKING AND READJUSTING OF EBER HOSE IS NECESSARY. PT'S BLOOD PRESSURE DROPPED TO 86/60 AND DOCTOR WAS NOTIFIED. CALL LIGHT IN REACH.
[2022-04-16 06:08] LABS: EOSINOPHILS PERCENT AUTO 1 % (0-6); Hematocrit 34.6 % (33.0-51.0); Hemoglobin 11.9 g/dL (11.5-16.0); IMMATURE GRAN PERCENT AUTO 1 % (0-1); LYMPHOCYTES ABSOLUTE AUTO 1.01 K/mm3 (0.84-5.20); LYMPHOCYTES PERCENT AUTO 10 % (21-46); MONOCYTES PERCENT AUTO 11 % (4-13); Mean Corpuscular HGB 34.9 pg (26.0-34.0); Mean Corpuscular HGB Conc 34.4 g/dL (31.5-36.5); Mean Corpuscular Volume 102 fL (80-100); Mean Platelet Volume 10.3 fL (9.1-12.4); NEUTROPHILS ABSOLUTE AUTO 7.66 K/mm3 (1.96-9.15); NEUTROPHILS PERCENT AUTO 77 % (41-73); Platelet Count 112 K/mm3 (150-400); RDW Coefficient Variation 15.1 % (11.7-14.2); RDW Standard Deviation 57.3 fL (35.1-46.3); Red Blood Cell Count 3.41 M/mm3 (3.80-5.20)
[2022-04-16 06:14] LABS: BASOPHILS ABSOLUTE AUTO 0.03 K/mm3 (0.00-0.23); BASOPHILS PERCENT AUTO 0 % (0-2)
[2022-04-16 06:20] LABS: Albumin, Blood 2.1 g/dL (3.4-5.0); Albumin/Globulin Ratio 0.6 (0.8-1.8); Bilirubin, Total 7.2 mg/dL (0.1-1.0); Bun/Creatinine Ratio 14.1 (12.0-20.0); Calcium, Blood 7.9 mg/dL (8.5-10.1); Creatinine, Blood 2.06 mg/dL (0.40-1.00); Globulin, Blood 3.4 g/dL (2.2-4.0); Potassium, Blood 3.3 mmol/L (3.5-5.5); Total Protein, Blood 5.5 g/dL (6.4-8.2)
--- NOTE | 2022-04-16 18:47 | NUR ---
PT IS A/OX4, PLEASANT AND COOPERATIVE. THE PT IS UP WITH ASSIST TO THE CHAIR. PT DECLINED THE CHAIR TODAY. PT IS FEELING SAD AND WAS TEARFULL AFTER HER SON VISITED HER THIS AFTERNOON. PT IS JAUNDICE. APPEARS TO BE BREATHING EASILY ON RA. PT HAS WEEPING EDEMA LESS COMPARED TO YESTERDAY. THE PT WAS MEDICATED FOR PAIN X1 TODAY PRIOR TO OCCUPATIONAL THERAPY. CALL LIGHT IN REACH.
--- NOTE | 2022-04-17 04:11 | NUR ---
SHIFT SUMMARY PATIENT HAD NO ACUTE CHANGES. AXOX 4 AND BEDREST. JAUNDICE. SPOUSE PRESENT FOR A FEW HOURS AFTER SHIFT CHANGE. PIV REMAINS INTACT. FLETCHER PATENT AND DRAINING TO GRAVITY. CHOLECYSTOSTOMY TUBE DRAIN INTACT. SBP IN 80'S BASELINE. AFEBRILE. REPORTED FEET PAIN X ONE AND OXYCODONE 5 MG GIVEN PER EMAR. PATIENT ABLE TO SLEEP WITH PAIN MANAGEMENT. COOPERATIVE WITH CARE. WATCH TV WITH FOR A FEW HOURS BEFORE SLEEPING. CALL LIGHT IN REACH. BED IN LOWEST POSITION. WILL CONTINUE TO MONITOR UNTIL DAY SHIFT NURSE ASSUMES CARE.
[2022-04-17 05:37] LABS: Albumin/Globulin Ratio 0.6 (0.8-1.8); Bilirubin, Total 7.7 mg/dL (0.1-1.0); Bun/Creatinine Ratio 15.5 (12.0-20.0); Calcium, Blood 7.8 mg/dL (8.5-10.1); Creatinine, Blood 2.19 mg/dL (0.40-1.00); Globulin, Blood 3.3 g/dL (2.2-4.0); Potassium, Blood 3.4 mmol/L (3.5-5.5); Total Protein, Blood 5.3 g/dL (6.4-8.2)
--- NOTE | 2022-04-17 18:19 | NUR ---
PATIENT PLANS TO DISCHARGE TO HOME WITH HOSPICE CARE ON THURSDAY. THIS SHIFT, SHE WAS SAD BECAUSE OF HAVING TO NOTIFY HER CHILDREN OF THE PLAN. SHE STATES "I AM NOT READY TO LEAVE 16 GRANDCHILDREN", SHE TALKS ABOUT REGRETS OF NOT QUITTING ETOH SOONER, BEFORE THIS HEALTH CONDITION BECAME SO SEVERE. PATIENT NEEDED LITTLE THROUGH OUT THIS SHIFT. SHE IS COMFORTABLE WITH NO COMPLAINTS OF PAIN. SOME NAUSEA APPEARED WITH DINNER. SHE BLAMES THE DRY MEAT. DECLINES TO TAKE AN ANTI-NAUSEA MEDICATION.
--- NOTE | 2022-04-18 04:22 | NUR ---
SHIFT SUMMARY PATIENT HAD MILD ANXIETY WITH TALKING TO FAMILY VIA FACE-TIME. SPOUSE PRESENT IN ROOM FIRST FEW HOURS OF SHIFT. PATIENT REPORTS HAVING TO MOVE INTO A TRAILER FOR THREE WEEKS AND GOING HOME ON HOSPICE. AXOX 4 AND BEDREST. DENIES PAIN, SOB, AND N/V. FLETCHER PATENT AND DRAINING TO GRAVITY. FLETCHER TO DC UPON DISCHARGE. PIV REMAINS INTACT. BILARY DRAIN INTACT AND DRAINING. SLEPT MOST OF SHIFT AFTER SPOUSE LEFT. COOPERATIVE WITH CARE. CALL LIGHT IN REACH. BED IN LOWEST POSITION. WILL CONTINUE TO MONITOR UNTIL DAY SHIFT NURSE ASSUMES CARE.
[2022-04-18 05:46] LABS: Bun/Creatinine Ratio 18.3 (12.0-20.0); Creatinine, Blood 2.3 mg/dL (0.40-1.00); Potassium, Blood 3.7 mmol/L (3.5-5.5)
[2022-04-18] MEDS ORDERED: BANATROL PLUS1 EAC1 PO (10:23)
[2022-04-18] MEDS ORDERED: BUME1 PO (10:24)
[2022-04-18] MEDS ORDERED: SPIR50 PO (10:24)
[2022-04-18] MEDS ORDERED: POTA10T PO (10:25)
--- NOTE | 2022-04-18 11:15 | NUR ---
DISCHARGE PT DISCHARGED HOME @ THIS TIME, PLAN FOR HOSPICE CARE. PT A&O @ TIME OF DC, SPOUSE @ BEDSIDE. PROVIDED W/ WRITTEN AND VERBAL INSTRUCTION, VERBALIZED UNDERSTANDING. IV D/TAJ. PT WC ESCORT OUT TO [place], SPOUSE PROVIDING TRANSPORT HOME.
== END 2022-04-18 11:25 | disposition hospice, home (50) | DRG 872 ==
LOC: ER 16:09 → MEDS 21:56
PROVIDERS: Family Medicine; Hospitalist; Internal Medicine; Physician Assistant; Student in an Organized Health Care Education/Training Program; Surgery; ADMIT Internal Medicine
PROC: 3E03329 Introduction of Other Anti-infective into Peripheral Vein, Percutaneous Approach (ICD-10-PCS; principal; 2022-04-06)
PROC: 0F9430Z Drainage of Gallbladder with Drainage Device, Percutaneous Approach (ICD-10-PCS; 2022-04-15)
DX: A41.9 Sepsis, unspecified organism (principal); E87.1 Hypo-osmolality and hyponatremia; E87.2 Acidosis; N17.9 Acute kidney failure, unspecified; N39.0 Urinary tract infection, site not specified; K80.43 Calculus of bile duct with acute cholecystitis with obstruction; R65.20 Severe sepsis without septic shock; Z51.5 Encounter for palliative care; Z66 Do not resuscitate; E87.6 Hypokalemia; Z20.822 Contact with and (suspected) exposure to COVID-19; K72.90 Hepatic failure, unspecified without coma; R19.7 Diarrhea, unspecified; R74.01 Elevation of levels of liver transaminase levels; K70.11 Alcoholic hepatitis with ascites; K70.31 Alcoholic cirrhosis of liver with ascites; I95.9 Hypotension, unspecified; B96.20 Unspecified Escherichia coli [E. coli] as the cause of diseases classified elsewhere; K76.0 Fatty (change of) liver, not elsewhere classified; E66.9 Obesity, unspecified; F10.20 Alcohol dependence, uncomplicated; R56.9 Unspecified convulsions; Z68.37 Body mass index [BMI] 37.0-37.9, adult; Z98.84 Bariatric surgery status; Z90.49 Acquired absence of other specified parts of digestive tract; Z98.1 Arthrodesis status; Z90.710 Acquired absence of both cervix and uterus; Z90.89 Acquired absence of other organs; Z87.891 Personal history of nicotine dependence; Z88.8 Allergy status to other drugs, medicaments and biological substances; Z79.899 Other long term (current) drug therapy
CPT/HCPCS: 0241U; 36415; 47533; 74176; 74181; 76937; 78226; 80048; 80053; 80069; 81001; 82140; 83690; 83735; 84100; 84439; 84443; 84481; 85025; 85610; 87040; 87086; 87507; 93005; 93010; 96365; 96366; 96375; 97110; 97116; 97162; 97166; 97530; 97535; 99152; 99153; 99285-25; A9270; A9537; C1769; C1894; J0696; J1650; J1940; J1956; J2250; J2405; J3010; J3480; J7030; J7040; J7050; P9047; P9612; Q9967